=== PATIENT | female | born 2000 | race African-American/Black ===

== ENCOUNTER 2021-06-16 12:18 | Emergency (ER) | payer OTHER ==
[~2021-06-16] VITALS: Ht 154.9 cm; Wt 55.0 kg
[2021-06-16] MEDS ORDERED: LIDOCAINE HCL/PF 1% 10 MG/ML 5ML VIAL INFIL ONE (13:00)
[2021-06-16] MEDS ORDERED: BACITRACIN ZINC OINT UDPKT TOP ONE (13:00)
[2021-06-16] MEDS: LIDOCAINE HCL 1% 10 MG/ML 10ML VIAL INJ NR ×2 (14:38→14:39)
[2021-06-16] MEDS ORDERED: ACETAMINOPHEN 325MG TABLET PO ONE (15:00)
[2021-06-16] MEDS ORDERED: SULF1TAB48 MT (15:14)
[2021-06-16] MEDS ORDERED: CEPH500C2 MT (15:14)
[2021-06-16 15:30] VITALS: BP 128/76
== END 2021-06-16 15:36 | disposition home or self-care (01) ==
LOC: ER 12:18
DX: H66.41 Suppurative otitis media, unspecified, right ear (principal)
CPT/HCPCS: 10060; 99282; J3490; Z7610